=== PATIENT | female | born 1970 | race Caucasian/White ===

== ENCOUNTER 2018-01-21 03:33 | Emergency (ER) | payer OTHER ==
[2018-01-21] MEDS ORDERED: HYDROcodone/Acetaminophen 10/325 mg Tablet ONE (03:51)
[2018-01-21] MEDS ORDERED: Ondansetron ODT 4 MG TAB ONE (03:51)
== END 2018-01-21 04:00 | disposition home or self-care (01) ==
LOC: ERS 03:33
DX: K02.9 Dental caries, unspecified (principal); F31.9 Bipolar disorder, unspecified; F90.9 Attention-deficit hyperactivity disorder, unspecified type; Z87.891 Personal history of nicotine dependence; Z79.899 Other long term (current) drug therapy
CPT/HCPCS: 99283; Q0162

== ENCOUNTER 2018-01-22 16:37 | Emergency (ER) | payer OTHER ==
[2018-01-22 17:43] LABS: #Monocytes 0.5 thou/uL (0.11-0.59); #Neutrophils 12.7 thou/uL (1.40-6.50); %Basophils 0.2 % (0.0-1.0); %Eosinophils 0.3 % (0.0-10.0); %Lymphocytes 6.9 % (21.0-51.0); %Monocytes 3.7 % (0.0-10.0); Hemoglobin 14.6 g/dL (12.0-16.0); Mean Corpuscular HGB CONC 34.9 g/dL (32.0-36.0); Mean Corpuscular Hemoglobin 30.1 pg (27.0-31.0); Mean Corpuscular Volume 86.2 fL (78.0-98.0); Mean Platelet Volume 6.9 fL (7.4-10.4); Platelet Count 245 thou/uL (130-400); RBC Distribution Width 11.3 % (11.5-14.5); Red Blood Cell (RBC) Count 4.87 mill/uL (4.20-5.40); White Blood Cell (WBC) Count 14.3 thou/uL (4.8-10.8)
[2018-01-22] MEDS ORDERED: Metoclopramide HCl 10 MG/2 ML VIAL ONE (17:57)
[2018-01-22 18:04] LABS: Anion Gap 15 mmol/L (10-20); BUN (Urea Nitrogen) 8 mg/dL (7.0-18.7); Calc. Creatinine Clearance 0 mL/min (70-130); Calcium 9.5 mg/dL (7.8-10.44); Carbon Dioxide 22 mmol/L (22-29); Chloride 102 mmol/L (98-107); Estimated GFR-MDRD 70; Glucose 103 mg/dL (70-105); Potassium 3.4 mmol/L (3.5-5.1); Sodium 136 mmol/L (136-145)
== END 2018-01-22 19:00 | disposition home or self-care (01) ==
LOC: ERS 16:37
DX: L03.211 Cellulitis of face (principal); E86.0 Dehydration; R11.10 Vomiting, unspecified; F31.9 Bipolar disorder, unspecified; F90.9 Attention-deficit hyperactivity disorder, unspecified type; Z87.891 Personal history of nicotine dependence; Z79.899 Other long term (current) drug therapy
CPT/HCPCS: 80048; 85025; 96365; 96375; J2270; J2765

== ENCOUNTER 2018-04-24 00:15 | Emergency (ER) | payer OTHER | END 2018-04-24 00:32 | disposition home or self-care (01) | LOC: ERS 00:15 | DX: K02.9 Dental caries, unspecified (principal); Z87.891 Personal history of nicotine dependence | CPT/HCPCS: 99282 ==

== ENCOUNTER 2018-04-25 00:40 | Emergency (ER) | payer OTHER ==
[2018-04-25] MEDS ORDERED: Ketorolac Tromethamine 60 MG/2 ML VIAL ONE (01:17)
[2018-04-25] MEDS ORDERED: Bupivacaine 0.5% 10 ML VIAL ONE (01:17)
== END 2018-04-25 02:08 | disposition home or self-care (01) ==
LOC: ERS 00:40
DX: K02.9 Dental caries, unspecified (principal); F31.9 Bipolar disorder, unspecified; F90.9 Attention-deficit hyperactivity disorder, unspecified type; Z87.891 Personal history of nicotine dependence; Z79.899 Other long term (current) drug therapy
CPT/HCPCS: 96372; J1885; J3490

== ENCOUNTER 2018-05-29 14:43 | Emergency (ER) | payer OTHER ==
[2018-05-29] MEDS ORDERED: Adacel (T-DAP) 0.5 ML VIAL ONE (15:27)
--- NOTE | 2018-05-29 15:43 | RAD ---
LEFT THUMB: 05/29/18 Three views. HISTORY: Injury with pain. No fracture or dislocation. No osseous abnormality is seen. IMPRESSION: No acute finding. POS: [facility]
== END 2018-05-29 15:45 | disposition home or self-care (01) ==
LOC: ERS 14:43
DX: S61.032A Puncture wound without foreign body of left thumb without damage to nail, initial encounter (principal); Z87.891 Personal history of nicotine dependence; W26.0XXA Contact with knife, initial encounter
CPT/HCPCS: 12001; 90471; 90715

== ENCOUNTER 2018-11-28 18:21 | Emergency (ER) | payer OTHER | END 2018-11-28 19:45 | disposition home or self-care (01) | LOC: ERS 18:21 | DX: K03.81 Cracked tooth (principal); K02.9 Dental caries, unspecified; F31.9 Bipolar disorder, unspecified | CPT/HCPCS: 99282 ==

== ENCOUNTER 2018-11-29 16:41 | Emergency (ER) | payer OTHER ==
[2018-11-29] MEDS ORDERED: traMADol HCl 50 MG TAB ONE (19:02)
[2018-11-29] MEDS ORDERED: Ketorolac Tromethamine 60 MG/2 ML VIAL ONE (19:02)
== END 2018-11-29 19:15 | disposition home or self-care (01) ==
LOC: ERS 16:41
DX: K03.81 Cracked tooth (principal); K02.9 Dental caries, unspecified; F90.9 Attention-deficit hyperactivity disorder, unspecified type; F31.9 Bipolar disorder, unspecified; Z87.891 Personal history of nicotine dependence; Z79.899 Other long term (current) drug therapy
CPT/HCPCS: 96372; J1885

== ENCOUNTER 2019-07-25 06:09 | Emergency (ER) | payer OTHER ==
[2019-07-25] MEDS ORDERED: Ibuprofen 800 MG TAB ONE (06:23)
== END 2019-07-25 06:30 | disposition home or self-care (01) ==
LOC: ERS 06:09
DX: K02.9 Dental caries, unspecified (principal); F90.9 Attention-deficit hyperactivity disorder, unspecified type; F31.9 Bipolar disorder, unspecified; Z87.891 Personal history of nicotine dependence; Z79.899 Other long term (current) drug therapy
CPT/HCPCS: 99283

== ENCOUNTER 2019-07-26 15:12 | Emergency (ER) | payer OTHER ==
[2019-07-26] MEDS ORDERED: Ondansetron ODT 4 MG TAB ONE (15:48)
[2019-07-26] MEDS ORDERED: Ketorolac Tromethamine 60 MG/2 ML VIAL ONE (15:48)
[2019-07-26] MEDS ORDERED: Bupivacaine 0.25% 10 ML VIAL ONE (16:06)
[2019-07-26] MEDS ORDERED: traMADol HCl 50 MG TAB ONE (17:01)
== END 2019-07-26 17:13 | disposition home or self-care (01) ==
LOC: ERS 15:12
DX: K03.81 Cracked tooth (principal); K02.9 Dental caries, unspecified; F31.9 Bipolar disorder, unspecified; F90.9 Attention-deficit hyperactivity disorder, unspecified type; Z87.891 Personal history of nicotine dependence
CPT/HCPCS: 96372; 99283; J1885; Q0162; S0020

== ENCOUNTER 2019-07-27 12:51 | Emergency (ER) | payer OTHER ==
[2019-07-27] MEDS ORDERED: Ketorolac Tromethamine 30 MG/ML VIAL ONE (14:48)
== END 2019-07-27 14:57 | disposition home or self-care (01) ==
LOC: ERS 12:51
DX: K02.9 Dental caries, unspecified (principal); F31.9 Bipolar disorder, unspecified; F90.9 Attention-deficit hyperactivity disorder, unspecified type; Z87.891 Personal history of nicotine dependence
CPT/HCPCS: 96374; J1885

== ENCOUNTER 2019-09-21 23:54 | Emergency (ER) | payer OTHER | END 2019-09-22 00:49 | disposition home or self-care (01) | LOC: ERS 23:54 | DX: M25.511 Pain in right shoulder (principal); F31.9 Bipolar disorder, unspecified; F90.9 Attention-deficit hyperactivity disorder, unspecified type; F42.9 Obsessive-compulsive disorder, unspecified; Z87.891 Personal history of nicotine dependence; Z79.899 Other long term (current) drug therapy | CPT/HCPCS: 99281 ==

== ENCOUNTER 2020-08-16 11:35 | Emergency (ER) | payer OTHER ==
[2020-08-16] MEDS ORDERED: Ibuprofen 200 MG TAB ONE (12:00)
== END 2020-08-16 12:05 | disposition home or self-care (01) ==
LOC: ERS 11:35
DX: K02.9 Dental caries, unspecified (principal); Z87.891 Personal history of nicotine dependence; Z79.899 Other long term (current) drug therapy
CPT/HCPCS: 99282

== ENCOUNTER 2020-08-17 02:42 | Emergency (ER) | payer OTHER ==
[2020-08-17] MEDS ORDERED: Ketorolac Tromethamine 30 MG/ML VIAL ONE (03:28)
[2020-08-17] MEDS ORDERED: HYDROcodone/Acetaminophen 5/325 mg Tablet ONE (03:28)
== END 2020-08-17 03:53 | disposition home or self-care (01) ==
LOC: ERS 02:42
DX: K04.7 Periapical abscess without sinus (principal); Z87.891 Personal history of nicotine dependence
CPT/HCPCS: 96372; 99281; J1885

== ENCOUNTER 2020-08-17 14:37 | Emergency (ER) | payer OTHER ==
[2020-08-17] MEDS ORDERED: Ondansetron ODT 4 MG TAB ONE (15:06)
== END 2020-08-17 15:55 | disposition home or self-care (01) ==
LOC: ERS 14:37
DX: R11.2 Nausea with vomiting, unspecified (principal); K08.89 Other specified disorders of teeth and supporting structures; Z79.899 Other long term (current) drug therapy; Z87.891 Personal history of nicotine dependence; K04.7 Periapical abscess without sinus; K02.9 Dental caries, unspecified
CPT/HCPCS: 96372; 99281; 99282; 99283; J1885; Q0162

== ENCOUNTER 2022-09-15 23:03 | Emergency (ER) | payer OTHER | END 2022-09-16 00:09 | disposition home or self-care (01) | LOC: ERS 23:03 | DX: K03.81 Cracked tooth (principal); K02.9 Dental caries, unspecified; Z87.891 Personal history of nicotine dependence | CPT/HCPCS: 99282 ==

== ENCOUNTER 2023-05-29 19:31 | Emergency (ER) | payer OTHER ==
[2023-05-29] MEDS ORDERED: Lidocaine 1% PF 5 ML VIAL ONE (20:40)
== END 2023-05-29 21:23 | disposition home or self-care (01) ==
LOC: ERS 19:31
DX: S91.312A Laceration without foreign body, left foot, initial encounter (principal); Z87.891 Personal history of nicotine dependence; W25.XXXA Contact with sharp glass, initial encounter
CPT/HCPCS: 12001

== ENCOUNTER 2023-10-14 23:47 | Emergency (ER) | payer OTHER ==
[2023-10-15] MEDS ORDERED: Ketorolac Tromethamine 30 MG (1 mL) VIAL ONE (00:48)
[2023-10-15] MEDS ORDERED: Lidocaine 4% Patch TD SCH (01:00)
[2023-10-15] MEDS ORDERED: Transdermal Patch Removal TOP SCH (13:00)
== END 2023-10-15 02:06 | disposition home or self-care (01) ==
LOC: ERS 23:47
DX: M25.511 Pain in right shoulder (principal); F17.290 Nicotine dependence, other tobacco product, uncomplicated
CPT/HCPCS: 96372; J1885